=== PATIENT | male | born 1995 | race Caucasian/White ===

== ENCOUNTER 2019-02-16 18:55 | Emergency (ER) | payer OTHER ==
[~2019-02-16] VITALS: Ht 190.5 cm; Wt 79.0 kg
[2019-02-16 19:07] VITALS: Ht 190.5 cm; Wt 79.0 kg
[2019-02-16] MEDS ORDERED: KETOROLAC 15 MG INJ IV STA (19:57)
[2019-02-16] MEDS ORDERED: SOD CHLORIDE 0.9% 500 ML IV ONE (20:00)
[2019-02-16] MEDS ORDERED: DEXAMETHASONE 10 MG/ML 1 ML INJ IV ONE (20:00)
[2019-02-16] MEDS ORDERED: CEFTRIAXONE 1 GM/50 ML (PMX) 50 ML IVPB ONE (20:00)
--- NOTE | 2019-02-16 20:00 | ERD ---
ER Documentation Chief Complaint Chief Complaint RT ARM REDNESS, PAIN AND SWELLING X2 DAYS HPI 23-year-old male, with history of IV drug use, presents to the emergency department, complaining of 2 days with well localized right forearm erythema, warmth and tenderness. The patient denies fever, no chills, no shortness of breath. No medications taken at this time for the pain. ROS All systems reviewed and are negative except as per history of present illness. Medications Home Meds Active Scripts Prednisone* (Prednisone*) 20 Mg Tab, 60 MG PO DAILY for 4 Days, TAB Prov:HERMILO FERNANDEZ MD 02/16/19 Sulfamethoxazole/Trimethoprim* (Bactrim Ds* Tablet) 1 Each Tablet, 1 TAB PO BID, #14 TAB Prov:HERMILO FERNANDEZ MD 02/16/19 Cephalexin* (Keflex*) 500 Mg Capsule, 500 MG PO QID for 7 Days, CAP Prov:HERMILO FERNANDEZ MD 02/16/19 Allergies Allergies: Coded Allergies: No Known Allergy (Unverified , 02/16/19) PMhx/Soc Medical and Surgical Hx: pt denies Surgical Hx History of Surgery: No Hx Neurological Disorder: No Hx Respiratory Disorders: No Hx Cardiac Disorders: No Hx Psychiatric Problems: No Hx Miscellaneous Medical Probl: Yes (IV drug use) Hx Alcohol Use: Yes Hx Substance Use: Yes Hx Tobacco Use: No Smoking Status: Never smoker Physical Exam Vitals Vital Signs Date Temp Pulse Resp B/P (MAP) Pulse Ox O2 O2 Flow FiO2 Time Delivery Rate 02/16/19 97.7 102 17 125/65 98 19:07 (85) Physical Exam Patient alert, oriented, vital signs stable. HEAD: Normocephalic, atraumatic. EYES: PERRLA, EOMI, Sclera and conjunctiva appear normal. NOSE: Clear and patent nostrils. EARS: Canals clear, tympanic membranes WNL. MOUTH: normal lips and tongue, no oral lesions. THROAT: Normal oropharynx, no tonsillar exudates. NECK: Supple, No lymphadenopathy. Full ROM without pain or tenderness. HEART: RRR, no rubs, murmurs, clicks or gallops. LUNGS: Clear to auscultation. ABDOMEN: Soft, non-tender without masses or hepatosplenomegaly. EXTREMITIES: No edema bilaterally. BACK: Full ROM, no deformity, normal back exam NEURO: Cranial nerves grossly intact, no motor or sensory deficit SKIN: 10 x 10 cm well demarcated area of erythema and induration, no fluctuance, no evidence of abscess formation. No rashes, no petechia. Results 24 hrs Current Medications Medications Dose Sig/Miguel Start Time Status Last (Trade) Ordered Route PRN Stop Time Admin Dose Reason Admin Sodium 500 ml @ Q1H ONCE 02/16/19 02/16/19 Chloride 500 mls/hr IV 20:00 02/16/19 20:08 20:59 Ceftriaxone 50 ml @ ONCE ONCE 02/16/19 DC 02/16/19 Sodium 100 mls/hr IVPB 20:00 02/16/19 20:08 20:29 8 mg ONCE ONCE 02/16/19 DC 02/16/19 Dexamethasone IV 20:00 02/16/19 20:08 (Decadron) 20:05 Ketorolac 15 mg ONCE STAT 02/16/19 DC 02/16/19 Tromethamine IV 19:57 02/16/19 20:08 (Toradol) 20:05 Procedures/MDM Vital signs stable, differential diagnosis include but not limited to: DVT, superficial thrombosis, cellulitis, erysipelas, shingles, abscess. Low suspicion for acute systemic infectious process. Physical examination and clinical presentation consistent most likely with cellulitis of the right forearm without evidence of abscess formation. During the ED course the patient remained stable, no new complaints. The patient received treatment with IV Rocephin, steroids and Toradol. Results and clinical impression discussed with the patient who agrees with management. The patient is stable to be treated outpatient and will be discharged home with a Rx for antibiotics, anti-inflammatories and pain medications, some side effects of prescribed medications (headache, rash, nausea, vomiting, diarrhea, drowsiness, habituation, bleeding, hypertension, interactions with other medications) were reviewed. The patient was instructed to follow up with the primary care provider in the next 48h. If symptoms persist, worsen or new symptoms develop, then patient s hould return to the ED immediately. Instructions explained and given directly by me to the patient and relatives with acknowledgment and demonstrated understanding. Disclaimer: Inadvertent spelling and grammatical errors are likely due to EHR/dictation software use and do not reflect on the overall quality of patient care. Also, please note that the electronic time recorded on this note does not necessarily reflect the actual time of the patient encounter. Departure Diagnosis: Primary Impression: Cellulitis of arm, right Condition: Stable Additional Instructions: Thank you very much for allowing us to participate in your care. Your health and safety is our top priority at [facility]. The evaluation in the emergency department has been done to rule out an acute emergency, therefore, chronic conditions like malignancy or other diseases have not been evaluated; therefore, you need to follow up with a primary care provider in the next 48h. If symptoms persist, worsen or new symptoms develop, then patient should return to the ED immediately. Call your primary care doctor TOMORROW for an appointment during the next 2-4 days and bring all the information provided. Have prescriptions filled and follow precisely the directions on the label. If the symptoms get worse and your provider is unavailable, return to the Emergency Department immediately. HERMILO FERNANDEZ MD February 16, 2019 20:00
[2019-02-16] MEDS ORDERED: SULF1TAB31 PO (20:22)
[2019-02-16] MEDS ORDERED: CEPH-443 PO (20:22)
[2019-02-16] MEDS ORDERED: PRED20TA PO (20:22)
[2019-02-16] MEDS ORDERED: IBUP-1542 PO (20:57)
[2019-02-16 21:06] VITALS: BP 105/53; PULSE 88; RESP 16
== END 2019-02-16 21:07 | disposition home or self-care (01) ==
LOC: FTE 18:55
DX: L03.113 Cellulitis of right upper limb (principal)
CPT/HCPCS: 96374; 96375; J0696; J1100; J1885; J7040; Z7502